=== PATIENT | female | born 1990 | race Caucasian/White ===

== ENCOUNTER → 2017-05-04 09:54 | Outpatient (CLI) | payer OTHER, SELFPAY ==
[2017-04-06 10:47] VITALS: BP 112/75; BMI 35.8
[2017-05-04 10:18] LABS: Absolute Lymphocyte Count 2.33 X10^3/ul (0.83-4.51); Absolute Neutrophil Count 10.7 X10^3/uL (2.0-7.7); Basophil# 0.02 X10^3/uL; Basophil% 0.1 % (0-1); Eosinophils% 0.7 % (0-5); Hematocrit 35.4 % (37-47); Hemoglobin 12.2 g/dl (12.0-15.0); Lymphocyte # 2.33 X10^3/ul (4.0); Lymphocyte % 16.6 % (19-41); Mean Corp Hgb Conc 34.5 g/gl (32-36); Mean Corpuscular Hgb 32.2 pg (27.0-32.0); Mean Corpuscular Volume 93.4 fL (81-99); Mean Platelet Vol. 11.9 fl (6.2-12.0); Monocyte# 0.78 X10^3/uL; Monocyte% 5.6 % (0-10); Neutrophil # 10.66 X10^3/uL (2.7-7.7); Neutrophil % 76.1 % (47-70); POSITIVE COUNT NO; POSITIVE DIFFERENTIAL NO; POSITIVE MORPHOLOGY NO; Platelet Count 269 K/mm3 (150-450); RBC Distribution Width CV 12.4 % (11.6-14.6); Red Blood Count 3.79 M/mm3 (4.2-5.4)
[2017-05-04 10:54] LABS: AST(SGOT) 14 U/L (15-37); Alanine Aminotransfer ALT/SGPT 24 U/L (13-56); Bilirubin, Direct 0.07 mg/dL (0.00-0.30); Glucose Challenge Gest 1H 50g 126 mg/dL (70-140); LDH 144 U/L (84-246)
== END ==
PROVIDERS: Family Provider Internal Medicine; PCP Internal Medicine; Visit Provider Obstetrics & Gynecology
DX: O99.719 Diseases of the skin and subcutaneous tissue complicating pregnancy, unspecified trimester (principal); L29.9 Pruritus, unspecified; Z3A.00 Weeks of gestation of pregnancy not specified
CPT/HCPCS: 36415; 82247; 82248; 82950; 83615; 84450; 84460; 85025

== ENCOUNTER → 2017-07-04 14:32 | Outpatient (CLI) | payer OTHER, SELFPAY ==
[2017-07-04 15:59] LABS: Group B Strep DNA By PCR Negative (Negative); Internal Control PASS; Probe Check PASS; Specimen Processing Control PASS
== END ==
PROVIDERS: Visit Provider Nurse Practitioner Women's Health
DX: Z34.93 Encounter for supervision of normal pregnancy, unspecified, third trimester (principal); Z3A.36 36 weeks gestation of pregnancy
CPT/HCPCS: 87081; 87653

== ENCOUNTER 2017-07-26 10:05 | Inpatient (IN) | payer OTHER, SELFPAY ==
[2017-07-26 05:33] VITALS: BMI 88.8
[2017-07-26 10:43] LABS: Hematocrit 32.6 % (37-47); Hemoglobin 10.7 g/dl (12.0-15.0); Mean Corp Hgb Conc 32.8 g/gl (32-36); Mean Corpuscular Hgb 28.8 pg (27.0-32.0); Mean Corpuscular Volume 87.9 fL (81-99); Mean Platelet Vol. 12.4 fl (6.2-12.0); Platelet Count 229 K/mm3 (150-450); RBC Distribution Width CV 13.6 % (11.6-14.6); RBC Distribution Width SD 43.8 fl (35.1-43.9); Red Blood Count 3.71 M/mm3 (4.2-5.4); White Blood Count 18.2 K/mm3 (4.4-11.0)
[2017-07-26 10:44] LABS: Scan Indicated on CBC? Y/N NO
[2017-07-26] MEDS: fentaNYL-bupivacaine (epidural) 100 ML BAG EPIDURAL ×2 (11:55→16:08)
[2017-07-26] MEDS: Lactated Ringers 1,000 ML 50 ML IV ×2 (12:00→16:00)
--- NOTE | 2017-07-26 12:41 | PCM.HP.STD ---
Problem List (1) 39 weeks gestation of Status: Acute History of Present Illness Date of Admission: 07/26/17 Chief Complaint: Painful contractions The patient is a 27 year old F 2 para 0010 at 39 weeks gestational age with painful contractions. She was observed this morning in triage and progressed from 2 to 4 cm over several hours. She reported good movement, no leaking of fluid or vaginal bleeding. 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 History: - - Abnormal PAP smear of cervix Smoking Status: Former smoker Tobacco Use: Non-smoker Alcohol: None Drugs: None - *Family History grandfather History Items: Heart Disease Review of Systems Constitutional: Reports: - - Heartburn and nausea Cardiovascular: Denies: Chest Pain Respiratory: Denies: Shortness of Breath Gastrointestinal: Denies: Abdominal Pain Gynecological: Denies: Vaginal bleeding Neurological: Reports: - - No vision changes Psychiatric: Denies: Depression VTE Information - Inpt Only VTE Present on Admission: No VTE Mechan Device Prophylaxis: None Subjective: See HPI Objective: AVSS - Physical Exam General: Alert, Oriented x3, Cooperative, No apparent distress HEENT: Atraumatic, Normocephalic Lungs: Normal air movement Cardiovascular: Regular rate, Regular Rhythm Abdomen: Soft, Non Tender, Non-Distended, Gravid, Obese, - Extremities: No Calf Tenderness Neurological: Neuro grossly intact Psych/Mental Status: Normal Affect, Appropriate, Alert and oriented to time, place, person, mood and affect Comment: Bedside US - fetus cephalic, OP, with anterior placenta Weight: 265 kg Body Mass Index (BMI) 88.8 Laboratory Tests Past 24 Hrs 07/26/17 07/26/17 10:30 10:30 WBC 18.2 H RBC 3.71 L Hgb 10.7 L Hct 32.6 L MCV 87.9 MCH 28.8 MCHC 32.8 RDW 13.6 RDW Differential 43.8 Plt Count 229 MPV 12.4 H Blood Type O POSITIVE Antibody Screen NEGATIVE labs reviewed: Rubella immune Hep Bs Ag neg RPR non-reactive HIV non-reactive Gonorrhea negative Chlamydia negative GBS negative Assessment/Plan 39 weeks gestation in latent labor, Cat I FHR Admit to Anesthesiology consult: Epidural placed per patient request GBS negative Reviewed with patient and family delivery risks not limited to pain, bleeding, infection, VTE, potential for hemorrhage, possibly requiring further surgery, as well as potential for labor augmentation, vacuum or delivery. Patient and family given opportunity to ask questions and questions answered to their satisfaction. Continue expectant management in labor
--- NOTE | 2017-07-26 12:52 | HP.PCM_ITS ---
Problem List (1) 39 weeks gestation of Status: Acute History of Present Illness Date of Admission: 07/26/17 Chief Complaint: Painful contractions The patient is a 27 year old F 2 para 0010 at 39 weeks gestational age with painful contractions. She was observed this morning in triage and progressed from 2 to 4 cm over several hours. She reported good movement , no leaking of fluid or vaginal bleeding. Past Medical History Allergies No Known Allergies Allergy (Verified 07/26/17 05:34) Home Medications: Ambulatory Orders Medication Instructions Recorded calcium carbonate 200 mg calcium 200 mg PO TID tab 03/07/17 (500 mg) chewable tablet 1 tab PO QDAY 03/07/17 vitamin,calcium,gwualmkw-rxgo-zkweg acid tablet ranitidine 150 mg tablet 150 mg PO QHS 04/06/17 Ibuprofen 600 mg PO TID PRN #30 tab 07/28/17 Senna/Docusate Sodium [Senokot-S] 1 - 2 tab PO DAILY PRN PRN #60 tab 07/28/17 Surgical History: - - Dilation and curettage Psychiatric History: Depression [employer] History: - - Abnormal PAP smear of cervix Smoking Status: Former smoker Tobacco Use: Non-smoker Alcohol: None Drugs: None - *Family History grandfather History Items: Heart Disease Review of Systems Constitutional: Reports: - - Heartburn and nausea Cardiovascular: Denies: Chest Pain Respiratory: Denies: Shortness of Breath Gastrointestinal: Denies: Abdominal Pain Gynecological: Denies: Vaginal bleeding Neurological: Reports: - - No vision changes Psychiatric: Denies: Depression VTE Information - Inpt Only VTE Present on Admission: No VTE Mechan Device Prophylaxis: None Subjective: See HPI Objective: AVSS - Physical Exam General: Alert, Oriented x3, Cooperative, No apparent distress HEENT: Atraumatic, Normocephalic Lungs: Normal air movement Cardiovascular: Regular rate, Regular Rhythm Abdomen: Soft, Non Tender, Non-Distended, Gravid, Obese, - Extremities: No Calf Tenderness Neurological: Neuro grossly intact Psych/Mental Status: Normal Affect, Appropriate, Alert and oriented to time, place, person, mood and affect Comment: Bedside US - fetus cephalic, OP, with anterior placenta Weight: 265 kg Body Mass Index (BMI) 88.8 Laboratory Tests Past 24 Hrs 07/26/17 07/26/17 10:30 10:30 WBC 18.2 H RBC 3.71 L Hgb 10.7 L Hct 32.6 L MCV 87.9 MCH 28.8 MCHC 32.8 RDW 13.6 RDW Differential 43.8 Plt Count 229 MPV 12.4 H Blood Type O POSITIVE Antibody Screen NEGATIVE labs reviewed: Rubella immune Hep Bs Ag neg RPR non-reactive HIV non-reactive Gonorrhea negative Chlamydia negative GBS negative Assessment/Plan 39 weeks gestation in latent labor, Cat I FHR Admit to Anesthesiology consult: Epidural placed per patient request GBS negative Reviewed with patient and family delivery risks not limited to pain, bleeding, infection, VTE, potential for hemorrhage, possibly requiring further surgery, as well as potential for labor augmentation, vacuum or delivery. Patient and family given opportunity to ask questions and questions answered to their satisfaction. Continue expectant management in labor
[2017-07-26] MEDS: proMETHazine 25 MG/ML Syringe IV (13:06)
[2017-07-26 13:11] VITALS: BMI 40.1
[2017-07-26] MEDS: Mag Hydrox/Al Hydrox/Simeth 30 ML UDC PO ×2 (14:36→19:31)
[2017-07-26] MEDS: Oxytocin 30 units/NS 500 ml 30 UNITS/500 ML IV.SOLN IV (18:15)
--- NOTE | 2017-07-26 18:25 | PCM.PN.BLA ---
Progress Note LABOR PROGRESS NOTE Stephanie remains comfortable with her epidural. No complaints. AVSS GEN - NAD, AAO x 3 SVE- 8.5/90/-1 per my exam FHR 140, moderate variability, + accelerations, no decelerations TOCO 3/10 min A/P: 27yo @ 39wga in active labor, Cat I FHR -Recommended amniotomy, r/b/i reviewed. Pt agreed to proceed. Amniotomy performed with clear fluid. -Will give pitocin for augmentation - risks reviewed including tachysystole with FHR changes, rarely requiring C/S. - Maternal and statuses reassuring.
[2017-07-26] MEDS: Oxytocin 30 units/NS 500 ml 30 UNITS/500 ML IV.SOLN 334 UNITS IV (23:03)
[2017-07-26] MEDS: Oxytocin 30 units/NS 500 ml 30 UNITS/500 ML IV.SOLN 167 UNITS IV (23:33)
--- NOTE | 2017-07-26 23:54 | PCM.OB.VAG ---
- Problem List (1) 39 weeks gestation of Status: Acute Vaginal Delivery Maternal Presentation: - - Latent labor Second stage pitocin augmentation Amniotic Membrane Rupture Type: Artificial Rupture of Membrane time: 1805h 07/26/17 Amniotic Fluid Description: Clear Final YANETH: 08/09/17 Final YANETH Source: US <20 weeks Gestational age: 38 Weeks and 0 Days Date of Procedure: 07/26/17 Pre-Operative Diagnosis: 38 wga, labor Post-Operative Diagnosis: 38 wga, labor Surgery/ Procedure Performed: Spontaneous Vaginal Delivery Anesthesiologist: Edda Moore Type of Anesthesia: Epidural Description of Procedure: SVE FD/+3 on my arrival. Patient pushed over single contractions to deliver a vigorous male infant in OA. The infant was placed on the maternal abdomen and further attended by nursery personnel. The cord was doubly clamped and cut after approximately 3 minutes of life. Cord blood and cord gases were obtained. The placenta delivered spontaneously and appeared intact on inspection. A second degree perineal laceration with vaginal and left labial extension was repaired with 3-0 Vicryl Rapide with excellent hemostasis. Presentation: Vertex Placental Delivery Description: Spontaneous Placenta Disposition: [facility] Cord Vessel Description: 3 Vessels Nuchal Cord Compression: Without compression Cord Gases drawn per routine: ABG, VBG Cord Entanglement: None Drain: Gilbert to straight drain Estimated Blood Loss: 400 ml Infant A gender: Male (1 minute): 8 (5 minute): 9 Episiotomy Description: None Laceration: Midline, Vaginal Extension/lac, 2nd degree Medications given after delivery: IV Pitocin Complications: None
--- NOTE | 2017-07-27 00:08 | DCINST_ITS ---
Discharge Diet: No Restrictions Discharge Activity: Return to Normal Activity, May Shower May resume sexual activity in: 6 weeks Lifting Restrictions: 10-20 lb Call your doctor if you observe: Fever of 101 or Higher, Inability to urinate, Inability to have a bowel movement, Using more than one pad per hour, Shortness of breath, Chest pain, Calf discomfort, Uncontrolled pain Suture Line Care: Avoid Pulling/Pushing Cleanse incision/area with: Soap & Water Additional Instructions: If you experience any of the following, contact your healthcare provider. * Bleeding that soaks a pad every hour for 2 hours * Fever 100.4 or higher * Unrelieved incision or abdominal pain * Swelling, redness, discharge or bleeding from your incision or episiotomy site * Your incision begins to separate * Problems urinating (including inability to urinate or burning while urinating) . * Visual changes * Severe headache * Flu-like symptoms * Pain or redness in one of both of your breasts * Pain, warmth, tenderness or swelling in your legs, especially the calf area * Frequent nausea and vomiting * Symptoms of depression or anxiety If you experience any of the following, call 911 or go to the nearest Emergency Room. * Chest pain * Problems breathing * Seizure activity * Partial or complete paralysis of a body part, slurred speech, weakness or drooping of the face, or a sudden inability to walk or hold your balance Allergies/Adverse Reactions: Allergies No Known Allergies Allergy (Verified 07/26/17 05:34) Medications to take at Discharge calcium carbonate 200 mg calcium (500 mg) chewable tablet 200 mg PO TID tab vitamin,calcium,rpxdzbsl-frop-tpkqy acid tablet 1 tab PO QDAY 03/07/17 ranitidine 150 mg tablet 150 mg PO QHS 04/06/17 Ibuprofen 600 mg PO TID PRN #30 tab 07/28/17 Senna/Docusate Sodium [Senokot-S] 1 - 2 tab PO DAILY PRN PRN #60 tab 07/28/17 The following prescriptions were given: Senna/Docusate Sodium [Senokot-S] 1 - 2 tab PO DAILY PRN PRN #60 tab PRN Reason: Constipation Ibuprofen 600 mg PO TID PRN #30 tab PRN Reason: Pain Please Follow Up With: Yaneli Aguilar MD When: 2 weeks AND 6 weeks Primary Care Physician: Rosy Rich MD [Primary Care Provider] -
[2017-07-27 04:31] VITALS: BP 143/84; PULSE 83; RESP 18; TEMP 36.8; O2SAT 98
[2017-07-27 08:00] VITALS: BP 129/62; PULSE 91; RESP 16; TEMP 37.1; O2SAT 98
--- NOTE | 2017-07-27 08:40 | PCM.PN.OB ---
Patient Problems: Active and Suspected Problems (Last Reviewed 07/25/17 @ 11:40 by Chayito Strauss) 39 weeks gestation of (Acute) Subjective: Stephanie is sore, but overall doing well. She passed a few clots, but denies heavy lochia. She is , infant is latching well. No complaints. Objective: AVSS - Physical Exam General: Alert, Oriented x3, Cooperative, No apparent distress HEENT: Atraumatic, Normocephalic Lungs: Clear to auscultation, Normal air movement Cardiovascular: Regular rate, Regular Rhythm Abdomen: Soft, Non Tender, Non-Distended, - - Fundus firm and nontender, lochia scant Extremities: No edema, No Calf Tenderness Neurological: Neuro grossly intact Psych/Mental Status: Normal Affect, Appropriate, Alert and oriented to time, place, person, mood and affect Vital Signs Temp Pulse Resp BP Pulse Ox 98.2 F 89 16 127/51 H 99 07/28/17 08:57 07/28/17 08:57 07/28/17 08:57 07/28/17 08:57 07/28/17 08:57 Oxygen Delivery Method Room Air Weight: 120.202 kg Body Mass Index (BMI) 40.1 Intake and Output for Last 24 Hours 07/26/17 07/27/17 07/28/17 23:59 23:59 23:59 Intake Total 2308 / 2308 Output Total 200 / 200 Balance 2108 / 2108 Medical Necessity - Tobacco Use Smoking Status: Former smoker Tobacco Use: Non-smoker Assessment/Plan Active and Suspected Problems (Last Reviewed 07/25/17 @ 11:40 by Chayito Strauss) 39 weeks gestation of (Acute) 27yo PPD#1 s/p doing well. - -O positive, Rubella immune -Routine care
[2017-07-27] MEDS: Famotidine 20 MG Tablet PO (11:28)
[2017-07-27] MEDS: Ibuprofen 600 MG Tablet PO (12:16)
[2017-07-27] MEDS: Prenatal Vits Tablet 1 TABLET PO (12:16)
[2017-07-27 12:50] VITALS: BP 121/66; PULSE 106; RESP 20; TEMP 36.7; O2SAT 98
[2017-07-27 15:15] VITALS: BP 120/72; PULSE 94; RESP 18; TEMP 36.8; O2SAT 97
[2017-07-27 20:51] VITALS: BP 114/69; PULSE 103; RESP 18; TEMP 36.7; O2SAT 98
[2017-07-27] MEDS: Senna/Docusate Sodium 1 Tablet PO (22:10)
[2017-07-28 01:46] VITALS: BP 121/61; PULSE 88; RESP 18; TEMP 36.6; O2SAT 97
[2017-07-28] MEDS: Prenatal Vits Tablet 1 TABLET PO (08:55)
[2017-07-28 08:57] VITALS: BP 127/51; PULSE 89; RESP 16; TEMP 36.8; O2SAT 99
--- NOTE | 2017-07-28 09:13 | PCM.PN.OB ---
Patient Problems: Active and Suspected Problems (Last Reviewed 07/25/17 @ 11:40 by Chayito Strauss) 39 weeks gestation of (Acute) Subjective: No issues overnight. Stephanie is doing well. Infant continues to nurse well, but he was fussy after his circumcision. Objective: AVSS - Physical Exam General: Alert, Oriented x3, Cooperative, No apparent distress HEENT: Atraumatic, Normocephalic Lungs: Clear to auscultation, Normal air movement Cardiovascular: Regular rate, Regular Rhythm Abdomen: Soft, Non Tender, Non-Distended, - - Fundus firm and nontender Extremities: No edema, No Calf Tenderness Neurological: Neuro grossly intact Psych/Mental Status: Normal Affect, Appropriate, Alert and oriented to time, place, person, mood and affect Vital Signs Temp Pulse Resp BP Pulse Ox 98.2 F 89 16 127/51 H 99 07/28/17 08:57 07/28/17 08:57 07/28/17 08:57 07/28/17 08:57 07/28/17 08:57 Oxygen Delivery Method Room Air Weight: 120.202 kg Body Mass Index (BMI) 40.1 Intake and Output for Last 24 Hours 07/26/17 07/27/17 07/28/17 23:59 23:59 23:59 Intake Total 2308 / 2308 Output Total 200 / 200 Balance 2108 / 2108 Medical Necessity - Tobacco Use Smoking Status: Former smoker Tobacco Use: Non-smoker Assessment/Plan Active and Suspected Problems (Last Reviewed 07/25/17 @ 11:40 by Chayito Strauss) 39 weeks gestation of (Acute) 27yo PPD#2 s/p doing well. -d/c home today
--- NOTE | 2017-07-28 09:18 | PCM.DC.SUM ---
Discharge Date and Diagnosis - Problem List Patient Problems: Active and Suspected Problems (Last Reviewed 07/25/17 @ 11:40 by Chayito Strauss) 39 weeks gestation of (Acute) Date of Admission: 07/26/17 Date of Discharge: 07/28/17 - Primary Discharge Diagnosis Active and Suspected Problems (Last Reviewed 07/25/17 @ 11:40 by Chayito Strauss) 39 weeks gestation of (Acute) Hospital Course and Treatment Operations: None Procedures: None Summary of Care Provided: The patient is a 27 year old F 2 para 0010 admitted at 39 weeks gestational age in labor. She received pitocin augmentation and subsequently had an uncomplicated . Her course was unremarkable and she was discharged to home on day #2. Discharge Diet: No Restrictions Discharge Activity: Return to Normal Activity, May Shower May resume sexual activity in: 6 weeks Call your doctor if you observe: Fever of 101 or Higher, Inability to urinate, Inability to have a bowel movement, Using more than one pad per hour, Shortness of breath, Chest pain, Calf discomfort, Uncontrolled pain Suture Line Care: Avoid Pulling/Pushing Cleanse incision/area with: Soap & Water Home Medications: Medications to take at Discharge calcium carbonate 200 mg calcium (500 mg) chewable tablet 200 mg PO TID tab 03/07/17 vitamin,calcium,ikplqizm-dwam-svped acid tablet 1 tab PO QDAY 03/07/17 ranitidine 150 mg tablet 150 mg PO QHS 04/06/17 Primary Care Physician: Rosy Rich MD [Primary Care Provider] - Please Follow Up With: Yaneli Aguilar MD Medical Necessity - Tobacco Use Smoking Status: Former smoker Tobacco Use: Non-smoker Meaningful Use Info Meaningful Use Diagnoses (Choose all that apply): None applicable
[2017-07-28 12:54] VITALS: BP 129/64; PULSE 88; RESP 16; TEMP 36.8
== END 2017-07-28 13:20 | disposition home or self-care (01) | DRG 775 ==
LOC: WPOUT 10:29
PROVIDERS: Admitting Provider Obstetrics & Gynecology; Family Provider Internal Medicine; PCP Internal Medicine; Visit Provider Obstetrics & Gynecology
DX: O70.1 Second degree perineal laceration during delivery (principal); Z37.0 Single live birth; O69.81X0 Labor and delivery complicated by cord around neck, without compression, not applicable or unspecified; O99.02 Anemia complicating childbirth; Z3A.39 39 weeks gestation of pregnancy; Z87.891 Personal history of nicotine dependence
CPT/HCPCS: 59025; 59050; 85027; 86850; 86900; 99218; J7120; G0378

== ENCOUNTER 2017-07-31 19:10 | Outpatient (CLI) | payer OTHER, SELFPAY | END 2017-07-31 20:00 | disposition home or self-care (01) | LOC: WPOUT 19:38 → WP 19:39 | PROVIDERS: Family Provider Internal Medicine; PCP Internal Medicine; Visit Provider Obstetrics & Gynecology | DX: O92.79 Other disorders of lactation (principal) | CPT/HCPCS: 96152 ==

== ENCOUNTER → 2017-09-05 09:55 | Outpatient (CLI) | payer OTHER, SELFPAY ==
[2017-09-05 11:20] LABS: T4 Free Direct 0.98 ng/dL (0.76-1.46); Thyroid Stim Hormone (TSH) 2.19 uIU/mL (0.358-3.74)
== END ==
PROVIDERS: Family Provider Internal Medicine; PCP Internal Medicine; Visit Provider Obstetrics & Gynecology
DX: E01.0 Iodine-deficiency related diffuse (endemic) goiter (principal)
CPT/HCPCS: 36415; 84439; 84443

== ENCOUNTER → 2017-09-12 14:12 | Outpatient (CLI) | payer OTHER, SELFPAY ==
--- NOTE | 2017-09-12 14:14 | US_ITS ---
STUDY: THYROID ULTRASOUND REASON FOR EXAM: Female, 27 years old. Thyromegaly. TECHNIQUE: Ultrasound evaluation of the thyroid was performed with real-time and static barreto-scale imaging. COMPARISON: None. FINDINGS: RIGHT LOBE: The right lobe of the thyroid gland measures 5.4 x 1.6 x 1.3 cm. There is a homogeneous echotexture. There are no demonstrated solid, cystic or complex lesions. LEFT LOBE: The left lobe of the thyroid gland measures 5.3 x 3.2 x 3.1 cm. Normal background echotexture of the gland, appropriate vascular flow. Large complex cystic and solid nodule mid polar measures 3.4 x 3.0 x 3.0 cm. It contains several tiny echo reflectors, probably colloid. This is likely a chocolate cyst. There is no apparent intranodular vascular flow. ISTHMUS: The isthmus measures 3 mm, normal echotexture. . US/Thyroid IMPRESSION: Cystic and solid nodule of the left thyroid gland. Hemorrhagic or chocolate cyst is favored. No intraluminal flow. Cystic and solid features. The internal solid features are probably debris and thrombus. Based on criteria of the [place] [employer], the cystic and solid nodule falls into the Very Low or Low Suspicion Pattern, and based on the [place] [employer] size criteria for very low suspicion pattern, size greater than 2 cm, ultrasound-guided FNA aspiration/biopsy is recommended. Electronically Signed: Austin Benton, at 15:33 EDT Tel , Service support ,
== END ==
PROVIDERS: Family Provider Internal Medicine; PCP Internal Medicine; Visit Provider Obstetrics & Gynecology
DX: E01.0 Iodine-deficiency related diffuse (endemic) goiter (principal)
CPT/HCPCS: 76536

== ENCOUNTER → 2017-10-31 17:37 | Outpatient (CLI) | payer OTHER, SELFPAY ==
--- NOTE | 2017-10-31 14:00 | ASPS_PTH ---
PATIENT: KAI MOREIRA LOC: [facility] #:[id number] AGE/SX: 35/F ROOM: RE10/31/[address]: Dr. Av Lynch MD : 1990 BED: DIS: SPEC #: [id number] RECD: 10/31/17 17:04 STATUS: HASEEB ANJELICA #: [id number] SAIRA: 10/31/17 14:[address]: Av Lynch DEPT: CYTOLOGY RECD BY: Austin Pina ENTERED: 11/01/17 10:12 SP TYPE: ASPIRATION OTHR DR: Dr. Rosy Rich MD Tissues: Thyroid gland, NOS Procedures: Pap Stain (control) Special Stain Group II Cytology Other HEADER OPERATION: Left thyroid FNA PRE-OP DIAGNOSIS: Left thyroid nodule TISSUE SUBMITTED: Left thyroid slides 6 DIAGNOSIS CYTOLOGY Left thyroid nodule, FNA (smears): Consistent with cystic follicular lesion with H?rthle features and a few atypical cells of undetermined significance. See cytology study and comment. SJ:rg 11/02/17 COMMENT Correlation with clinical, radiologic findings and appropriate follow up are necessary. Case has been reviewed in consultation with Dr. Sweet who concurs with the above diagnosis. IDC:AM CYTOLOGY STUDY Slides are reviewed. The specimen is adequate for evaluation. The specimen consists of numerous macrophages, benign follicular cells, H?rthle cells and giant cells. A few of the H?rthle cells of undetermined significance are also noted. CYTOLOGY GROSS Received are six smears labeled with the patient's name and designated per the requisition as left thyroid. Submitted for staining. 11/01/17 TC:5 CPT: 88311
== END ==
PROVIDERS: Family Provider Internal Medicine; PCP Internal Medicine; Visit Provider Surgery
DX: E04.1 Nontoxic single thyroid nodule (principal)
CPT/HCPCS: 88161; 88313

== ENCOUNTER → 2020-11-10 16:04 | Outpatient (CLI) | payer OTHER, SELFPAY ==
[2020-11-10 17:21] LABS: Amphetamine Urine VISTA NEGATIVE (<1000 ng/mL); Barbiturate Urine VISTA NEGATIVE (< 200 ng/mL); Benzodiazepine Urine VISTA NEGATIVE (< 200 ng/mL); Cocaine Urine VISTA NEGATIVE (< 300 ng/mL); Ecstacy Urine VISTA NEGATIVE (< 500 ng/mL); Methadone Urine VISTA NEGATIVE (< 300 ng/mL); PCP Urine VISTA NEGATIVE (< 25 ng/mL); THC Urine VISTA NEGATIVE (< 50 ng/mL); Vista UDS pH Range 7
[2020-11-12 20:08] LABS: Chlamydia By Nucleic Acid AMP Negative (Negative)
[2020-11-12 21:09] LABS: Gonococcus By Nucleic Acid AMP Negative (Negative)
[2020-11-15 14:51] LABS: HPV APTIMA, High Risk Negative (Negative)
== END ==
PROVIDERS: PCP Internal Medicine; Referring Provider Obstetrics & Gynecology; Visit Provider Obstetrics & Gynecology
DX: Z34.80 Encounter for supervision of other normal pregnancy, unspecified trimester (principal)
CPT/HCPCS: 80307; 87086; 87088; 87491; 87591; 87624; 88175; G0145

== ENCOUNTER → 2020-11-26 15:21 | Outpatient (CLI) | payer OTHER, SELFPAY ==
[2020-11-26 16:10] LABS: Absolute Lymphocyte Count 3.08 X10^3/uL (0.83-4.51); Absolute Neutrophil Count 7.5 X10^3/uL (2.0-7.7); Basophil# 0.02 X10^3/uL; Basophil% 0.2 % (0-1); Eosinophils% 0.9 % (0-5); Hematocrit 38.7 % (37-47); Hemoglobin 12.9 g/dL (12.0-15.0); Lymphocyte # 3.08 X10^3/ul (0.83-4.51); Lymphocyte % 27.1 % (19-41); Mean Corp Hgb Conc 33.3 g/dL (32-36); Mean Platelet Vol. 11.1 fl (6.2-12.0); Monocyte# 0.61 X10^3/uL; Monocyte% 5.4 % (0-10); NRBC Flagged by Analyzer 0 % (0-5); Neutrophil # 7.49 X10^3/uL (2.7-7.7); Neutrophil % 65.9 % (47-70); Platelet Count 216 K/mm3 (150-450); RBC Distribution Width CV 12.8 % (11.6-14.6); RBC Distribution Width SD 45.2 fl (35.1-43.9); Red Blood Count 4.03 M/mm3 (4.2-5.4); White Blood Count 11.4 K/mm3 (4.4-11.0)
[2020-11-26 16:33] LABS: NATERA MAILED SPECIMEN
[2020-11-26 16:54] LABS: Glucose Challenge Gest 1H 50g 92 mg/dL (70-140)
[2020-11-30 09:22] LABS: HIV - WCH Non-Reactive (Nonreactive); Hepatitis B Surface Antigen Non-Reactive (Nonreactive); Hepatitis C Antibody Non-Reactive (Nonreactive); Rubella IgG Reactive (Nonreactive); Syphilis Antibodies Non-reactive
== END ==
LOC: LABSPEC 15:22
PROVIDERS: PCP Internal Medicine; Referring Provider Obstetrics & Gynecology; Visit Provider Obstetrics & Gynecology
DX: Z34.80 Encounter for supervision of other normal pregnancy, unspecified trimester (principal); E89.0 Postprocedural hypothyroidism
CPT/HCPCS: 36415; 82950; 84443; 85025; 86703; 86762; 86780; 86803; 86850; 86900; 86901; 87340

== ENCOUNTER → 2021-03-02 16:30 | Outpatient (CLI) | payer OTHER, SELFPAY | PROVIDERS: PCP Internal Medicine; Visit Provider Obstetrics & Gynecology | DX: N89.8 Other specified noninflammatory disorders of vagina (principal) | CPT/HCPCS: 87070; 87205 ==

== ENCOUNTER → 2021-03-11 16:13 | Outpatient (CLI) | payer OTHER, SELFPAY ==
[2021-03-11 16:56] LABS: Absolute Lymphocyte Count 1.58 X10^3/uL (0.83-4.51); Basophil# 0.03 X10^3/uL; Basophil% 0.3 % (0-1); Eosinophil# 0.06 X10^3/uL; Eosinophils% 0.6 % (0-5); Hematocrit 34.1 % (37-47); Hemoglobin 11.1 g/dL (12.0-15.0); Lymphocyte # 1.58 X10^3/ul (0.83-4.51); Lymphocyte % 15.2 % (19-41); Mean Corp Hgb Conc 32.6 g/dL (32-36); Mean Corpuscular Hgb 30.6 pg (27.0-32.0); Mean Corpuscular Volume 93.9 fL (81-99); Mean Platelet Vol. 11.1 fl (6.2-12.0); Monocyte% 5.8 % (0-10); NRBC Flagged by Analyzer 0 % (0-5); Neutrophil # 7.95 X10^3/uL (2.7-7.7); Neutrophil % 76.5 % (47-70); Platelet Count 266 K/mm3 (150-450); RBC Distribution Width SD 41.5 fl (35.1-43.9); Red Blood Count 3.63 M/mm3 (4.2-5.4); White Blood Count 10.4 K/mm3 (4.4-11.0)
[2021-03-11 17:46] LABS: Glucose Challenge Gest 1H 50g 122 mg/dL (70-140)
[2021-03-11 17:49] LABS: Thyroid Stim Hormone (TSH) 1.16 uIU/mL (0.358-3.74)
== END ==
PROVIDERS: Obstetrics & Gynecology; PCP Internal Medicine; Visit Provider Obstetrics & Gynecology
DX: Z34.91 Encounter for supervision of normal pregnancy, unspecified, first trimester (principal); E86.0 Dehydration
CPT/HCPCS: 36415; 82950; 84443; 85025

== ENCOUNTER 2021-05-13 16:46 | Outpatient (CLI) | payer OTHER, SELFPAY | END 2021-05-13 23:59 | disposition home or self-care (01) | LOC: LABSPEC 16:47 | PROVIDERS: PCP Internal Medicine; Visit Provider Obstetrics & Gynecology | DX: Z34.80 Encounter for supervision of other normal pregnancy, unspecified trimester (principal) | CPT/HCPCS: 87081 ==

== ENCOUNTER 2021-06-13 04:53 | Inpatient (IN) | payer OTHER, SELFPAY ==
[2021-06-13] VITALS (53 sets, daily range): BP systolic 93–233; BP diastolic 49–118; PULSE 77–171; RESP 16–18; TEMP 35.9–36.6; O2SAT 82–100; BMI 38.7
[2021-06-13] MEDS: Lactated Ringers 500 ML 999 ML IV (05:05)
[2021-06-13 05:28] LABS: Absolute Lymphocyte Count 3.99 X10^3/uL (0.83-4.51); Absolute Neutrophil Count 10.4 X10^3/uL (2.0-7.7); Basophil# 0.04 X10^3/uL; Basophil% 0.3 % (0-1); Eosinophil# 0.11 X10^3/uL; Eosinophils% 0.7 % (0-5); Hematocrit 33.5 % (37-47); Hemoglobin 10.5 g/dL (12.0-15.0); Lymphocyte # 3.99 X10^3/ul (0.83-4.51); Lymphocyte % 25.7 % (19-41); Mean Corp Hgb Conc 31.3 g/dL (32-36); Mean Corpuscular Hgb 25.6 pg (27.0-32.0); Mean Corpuscular Volume 81.7 fL (81-99); Mean Platelet Vol. 12.1 fl (6.2-12.0); Monocyte# 0.86 X10^3/uL; Monocyte% 5.5 % (0-10); NRBC Flagged by Analyzer 0 % (0-5); Neutrophil # 10.42 X10^3/uL (2.7-7.7); Neutrophil % 67.3 % (47-70); Platelet Count 319 K/mm3 (150-450); RBC Distribution Width SD 44.8 fl (35.1-43.9); White Blood Count 15.5 K/mm3 (4.4-11.0)
--- NOTE | 2021-06-13 05:59 | HP.PCM.OB_ITS ---
HPI - General General Date of Admission: 06/13/21 HPI Narrative KAI MOREIRA, is a 31 y/o @ 40 weeks 3 days who presents to L&D with the complaint of painful contractions. When the nurse called to alert that the patient had arrived, she reported that she is 6 cm dilated and asking for an epidural. Maternal Data Information YANETH Calculator Estimated Delivery Date Method Current WG Current Estimate 06/10/21 Ultrasound #1 40w 3d Other Estimates 06/18/21 LMP (Certain) 39w 2d PFSH [facility] Medical History (Updated 06/13/21 @ 05:22 by Maryjane Bueno) Abnormal Pap smear of cervix Depression Superficial varicosities Thyroid nodule Home Medications multivitamin no.47-iron fum 27 mg-folate no.1 1 mg-dha 300 mg capsule cap PO DAILY 11/02/20 [History Last Taken 06/12/21] aspirin 81 mg tablet,delayed release 81 mg PO DAILY 01/11/21 [History Last Taken 06/12/21] omeprazole 10 mg capsule,delayed release 10 mg PO DAILY 03/11/21 [History Last Taken 06/12/21] sertraline [Zoloft] 100 mg PO DAILY 06/13/21 [History Last Taken 06/12/21] Allergy/AdvReac Type Severity Reaction Status Date / Time No Known Allergies Allergy Verified 06/13/21 04:41 Family History Grandfather Heart disease CVA (cerebral vascular accident) Mother Thyroid disorder Grandmother Colon cancer Surgical History H/O dilation and curettage H/O thyroidectomy Social History Smoking Status: Former smoker second hand exposure: Yes alcohol intake: never substance use type: does not use caffeine: Yes what type of physical activity do you participate in: none seatbelt use: always do you feel safe at home: Yes additional social history: james History 3 Elective abortions Hx Para 1 Spontaneous abortions Hx # Term Pregnancies 1 Ectopic pregnancies Hx # Pregnancies Multiple births # of living children 1 Past Pregnancies Del. Date Name GA/Weeks Outcome Route Bth Weight Infant Gen Labor Lgth Anesthesia Del Locatn Provider FOB 07/26/17 Horace 38 live - full term 7 lbs 9oz Male 24 e pidural [facility] Jeff Radford Visit Details Expected Delivery Route/Plan Labor Preferences- CB/BF classes: declines labor support person: MYLENE labor intervention preferences: no preference pain management options preferred:plans for epidural cut cord/dad catch: [] : [] PP control planned:undecided discussed possible routes of delivery and associated risks: [] special requests: [] Plans Covid status: counseled regarding risk of covid in vs vaccination and declined vaccination Flu vaccine: declined Tdap vaccine: given Rhogam: na LARC form signed: declined movement and labor precautions reviewed. Problem list reviewed and updated with the most current plan of care details and appropriate orders placed. Relevant counseling for the gestational age provided. Continue routine care and follow up unless otherwise noted in visit notes/problem list details OB Flowsheet Initial Weight: Not Recorded Date -?-?--?-?-?-?-?-?-?-?-?-?- EGA Weight BP Urine Prot -?-?-?-?-?-?-?-?-?-?-?-?- Glucose FHR FuHt Pres Dilation -?-?-?-?-?-?-?-?-?-?-?-?- Effaced St Visit Note 11/10/20 -?-?-?-?-?-?-?-?-?-?-?-?- 9w 5d 212 lb 4 oz 120/72 -?-?-?-?-?-?-?-?-?-?-?-?- 185 -?-?-?-?-?-?-?-?-?-?-?-?- GP - CRL 25mm co nsistent with LMP 12/10/20 -?-?-?-?-?-?-?-?-?-?-?-?- 14w 0d 212 lb 8 oz 144/88 Nega tive -?-?-?-?-?-?-?-?-?-?-?-?- Negative 150 -?-?-?-?-?-?-?-?-?-?-?-?- GP - no cramping or bleeding. Anatomy ordered. PRR. NIPT nl. It's a boy! 01/11/21 -?-?-?-?-?-?-?-?-?-?-?-?- 18w 4d 226 lb 6 oz 110/68 Nega tive -?-?-?-?-?-?-?-?-?-?-?-?- Negative 151 -?-?-?-?-?-?-?-?-?-?-?-?- MH-No VB, LOF. Recent covid:instruct on ASA use and will need growth US at 32 and 36wk. Has not heard from MFM for anatomy US-will follow up on that. 02/11/21 -?-?-?-?-?-?-?-?-?-?-?-?- 23w 0d 232 lb 130/70 Negative -?-?-?-?-?-?-?-?-?-?-?-?- 150 -?-?-?-?-?-?-?-?-?-?-?-?- SM- no vb lof go od fm no regualr ctx 03/02/21 -?-?-?-?-?-?-?-?-?-?-?-?- 25w 5d 239 lb 4 oz 122/84 Nega tive -?-?-?-?-?-?-?-?-?-?-?-?- Negative 123 -?-?-?-?-?-?-?-?-?-?-?-?- JV- pt here for vaginal discharge. She used monistat without relief. on exam there is slightly frothy dc with a light hodges color. She prefers flagyl po. culture sent. 03/11/21 -?-?-?-?-?-?-?-?-?--?-?-?- 27w 0d 243 lb 2 oz 128/76 Trac e -?-?-?-?-?-?-?-?-?-?-?-?- Negative 144 -?-?-?-?-?-?-?-?-?-?-?-?- JV- no lof, va g inal bleeding, or dec fm. GCT today. rpt thyroid level today 04/01/21 -?-?-?-?-?-?-?-?-?-?-?-?- 30w 0d 247 lb 2 oz 120/70 Nega tive -?-?-?-?-?-?-?-?-?-?-?-?- Negative 144 33 -?-?-?-?-?-?-?-?-?-?-?-?- JV- no lof, vagi nal bleeding, or dec fm. normal GCT. Normal TSH 04/15/21 -?-?-?-?-?-?-?-?-?-?-?-?- 32w 0d 250 lb 92/64 Negative -?-?-?-?-?-?-?-?-?-?-?-?- Negative 140 32 -?-?-?-?-?-?-?-?-?-?-?-?- SM- no vb lof go od fm no reuglar ctx. discussed healthy weight gain 04/29/21 -?-?-?-?-?-?-?-?-?-?-?-?- 34w 0d 252 lb 126/70 -?-?-?-?-?-?-?-?-?-?-?-?- 140 34 -?-?-?-?-?-?-?-?-?-?-?-?- SM- no vb lof go od fm nor egular ctx 05/13/21 -?-?-?-?-?-?-?-?-?-?-?-?- 36w 0d 252 lb 8 oz 120/68 Nega tive -?-?-?-?-?-?-?-?-?-?-?-?- Negative 145 37 Cephalic 1 -?-?-?-?-?-?-?-?-?-?-?-?- SM- no vb lof go od fm no regular ctx gbs done 05/20/21 -?-?-?-?-?-?-?-?-?-?-?-?- 37w 0d 252 lb 8 oz 120/62 Nega tive -?-?-?-?-?-?-?-?-?-?-?-?- Negative 160 38 Cephalic 1 -?-?-?-?-?-?-?-?-?-?-?-?- 50 -3 JV- no lof vaginal bleeding or dec fm. JV- no lof vaginal bleeding or dec fm. GBS negative 05/27/21 -?-?-?-?-?-?-?-?-?-?-?-?- 38w 0d 256 lb 8 oz 124/76 Trac e -?-?-?-?-?-?-?-?-?-?-?-?- Negative 150 39 Cephalic 2 -?-?-?-?-?-?-?-?-?-?-?-?- 60 -3 SM- no vb lof good fm no reuglar ctx 06/03/21 -?-?-?-?-?-?-?-?-?-?-?-?- 39w 0d 258 lb 4 oz 130/74 Nega tive -?-?-?-?--?-?-?-?-?-?-?-?- Negative 137 41 Cephalic 4 -?-?-?-?-?-?-?-?-?-?-?-?- 80 -3 JV- no lof , vaginal bleeding, or dec fm. no complaints. 06/10/21 -?-?-?-?-?-?-?-?-?-?-?-?- 40w 0d 256 lb 114/62 Negative -?-?-?-?-?-?-?-?-?-?-?-?- Negative 140 41 Cephalic -?-?-?-?-?-?-?-?-?-?-?-?- SM- no vb lof go od fm nor egular ctx 06/13/21 -?-?-?-?-?-?-?-?-?-?-?-?- 40w 3d 254 lb 10.142 oz 128 /65 233/118 126/62 137/64 -?-?-?-?-?-?-?-?-?-?-?-?- -?-?-?-?-?-?-?-?-?-?-?-?- ROS Constitutional Constitutional: Denies change in weight, fatigue, fever(s), headache(s), poor appetite or weakness Eyes Eyes: Denies blurry vision, change in vision, seeing flashes or spots in vision ENT HEENT: Denies dizziness, headache(s), loss taste/smell or sore throat Cardiovascular Cardiovascular: Denies chest pain, dizziness, dyspnea, irregular heart rhythm, leg edema, palpitations, rapid heart rate or vomiting Respiratory/Chest Respiratory/Chest: Denies chest tightness, cough, dyspnea or breast pain Gastrointestinal Gastrointestinal: Denies abdominal pain, anorexia, constipation, cramping, diarrhea, hemorrhoids, vomiting or weight changes Genitourinary Genitourinary: Denies dysuria, flank pain, genital lesions, genital pain, urinary frequency or urinary urgency Musculoskeletal Musculoskeletal: Denies back pain, difficulty walking, joint pain, limited range of motion, muscle cramps or numbness Integumentary Integumentary: Denies lesions or unusual bruising Neurologic Neurologic: Denies abnormal movements, abnormal speech, dizziness, numbness, seizure-like activity or syncope Psychiatric Psychiatric: Denies anxiety, behavioral changes, change in appetite, change in libido, cognitive impairment, confusion, depression, difficulty concentrating, hallucinations or suicidal thoughts Endocrine Endocrinology: Denies excessive sweating, polydipsia or polyuria Hematologic/Lymphatic Hematologic/Lymphatic: Denies easy bleeding, easy bruising or lymphadenopathy Allergic/Immunologic Allergic/Immunologic: Denies itchy eyes, lip swelling, seasonal rhinorrhea, rhinitis, throat swelling, tongue swelling, eczemia, wheezing or asthma Vital Signs Vital Signs Vital Signs: 06/13/21 04:45 06/13/21 04:53 06/13/21 05:41 Temperature 97.0 F L Temperature Source Temporal Pulse Rate 108 H 97 Blood Pressure 128/65 H BP Systolic 128 BP Diastolic 65 Pulse Ox 99 06/13/21 05:46 06/13/21 05:50 06/13/21 05:51 Temperature Temperature Source Pulse Rate 95 92 Blood Pressure 233/118 H BP Systolic 233 BP Diastolic 118 Pulse Ox 99 98 06/13/21 05:52 06/13/21 05:56 Temperature Temperature Source Pulse Rate 93 87 Blood Pressure 126/62 H BP Systolic 126 BP Diastolic 62 Pulse Ox 99 Weight Weight: 254 lb 10.142 oz Body Mass Index (BMI) 38.7 Physical Exam Const alert, oriented x3, no apparent distress and healthy appearing General Appearance: cooperative; Negative for anxious HEENT normocephalic Face and Sinus: normal facial exam Eyes EOMs intact bilaterally and no scleral icterus General Eye: normal appearance of both eyes Neck full ROM and supple Lymph Lymphatic: no lymphadenopathy noted Chest Chest: abnormal inspection of the chest Resp normal respiratory effort Effort and Inspection: able to speak in complete sentences Cardio regular rate GI soft to palpation and non-tender Inspection: gravid Palpation: soft; Negative for tender external exam normal Back/Spine no CVA tenderness Extremity normal to inspection, full ROM and no clubbing, cyanosis or edema General Extremity: Negative for calf tenderness or edema Skin Lesions: no lesions Rashes: no rashes Psych mental status grossly normal Labs Labs Labs: Blood Type O POSITIVE Antibody Screen NEGATIVE Hct 33.5 % (37-47) L Hgb 10.5 g/dL (12.0-15.0) L Obstetrics US Syphilis Total Ab Non-reactive Rubella IgG Antibody Reactive (Nonreactive) Hep Bs Antigen Non-Reactive (Nonreactive) Chlamydia DNA (SALAZAR) Negative (Negative) Neisseria gonorrhoeae DNA (SALAZAR) Negative (Negative) HIV 1&2 Antibody Non-Reactive (Nonreactive) Glucose 1 Hr 50 gm 122 mg/dL (70-140) Group B Strep DNA Negative (Negative) Rhogam given: No Miscellaneous Test Assessment & Plan (1) : QUALIFIERS: Weeks of gestation: 40 weeks Qualified Code(s): Z3A.40 - 40 weeks gestation of COMMENT: GBS neg. declined ntd screen. declines carrier, NIPT low risk. Anatomy US normal (2) Supervision of other normal : COMMENT: PRR YANETH: 06/10/21, boy, PC: Horace BF: James (3) Obesity affecting : QUALIFIERS: Trimester: first trimester Qualified Code(s): O99.211 - Obesity complicating , first trimester COMMENT: GCT wnl at NOB (4) Anxiety and depression: COMMENT: 11/15 zoloft start; 01/11 increase zoloft, encouraged counseling (5) COVID: COMMENT: +01/01/21 ASA daily, growth US 32 and 36 wk (6) Abnormal Pap smear of cervix: COMMENT: LGSIL 2016 (7) H/O thyroidectomy: COMMENT: no meds, nl labs. partial thyroidectomy. NL TSH 03/11/21 PLAN: Patient presents IAL, plan expectant management for , pitocin/AROM PRN if needed. Pain management: plans epidural. GBS negative. Management of any complications: [none] I have reviewed the [facility] and made any clinically relevant updates.
[2021-06-13] MEDS: fentaNYL-bupivacaine (epidural) 100 ML BAG EPIDURAL (06:05)
[2021-06-13] MEDS: Lactated Ringers 1,000 ML 200 ML IV ×3 (06:08→13:43)
--- NOTE | 2021-06-13 06:36 | PCM.DC ---
Discharge Instructions Diet Discharge Diet: No restrictions Activity Discharge Activity: Return to Normal Activity, May Not Drive (while taking narcotic pain medications.) and May Shower May resume sexual activity in: 4-6 weeks Dressing / Incision Call your doctor if your incision/area has: Continuous Slow Oozing, Sudden Increased Bleeding, Increased Pain/ Swelling, Increased Redness and Foul Smelling Discharge Follow Up Care Please Follow Up With: Ivory Taylor, When: Call [phone] to make an appointment with your doctor in 6 weeks. If you had elevated blood pressure or 4th degree laceration, you will need to be seen in 2 weeks. Test Results: Test results from this visit will be discussed in further detail at your follow-up appointment, if applicable. Discharge Plan Admission Admit Date/Time: 06/13/21 04:53 Primary Reason for Your Visit: vaginal delivery Attending Provider: Ivory Taylor Primary Care Provider: Rosy Rich Discharge Orders/Prescriptions Prescriptions: New ibuprofen 800 mg tablet 800 mg PO Q8H PRN (Reason: pain) 7 Days Qty: 30 RF: 0 Continued PNV-DHA 27 mg iron-1 mg -300 mg capsule PO DAILY RF: 0 omeprazole 10 mg capsule,delayed release(DR/EC) 10 mg PO DAILY RF: 0 sertraline [Zoloft] 50 mg tablet 100 mg PO DAILY RF: 0 Discontinued aspirin [Adult Low Dose Aspirin] 81 mg tablet,delayed release (DR/EC) 81 mg PO DAILY RF: 0 Referrals / Follow Up: Rosy Rich MD [Primary Care Provider] - Disposition Disposition (needs filled in before D/C Order can be placed): Home, Self Care
[2021-06-13] MEDS: Ondansetron 4 MG/2 ML Vial IV (07:23)
[2021-06-13] MEDS: Oxytocin 30 units/NS 500 ml 30 UNITS/500 ML IV.SOLN 334 UNITS IV (11:43)
--- NOTE | 2021-06-13 11:57 | OP.PCM_ITS ---
Maternal Data Information YANETH Calculator Estimated Delivery Date Method Current WG Current Estimate 06/10/21 Ultrasound #1 40w 3d Other Estimates 06/18/21 LMP (Certain) 39w 2d Vaginal Delivery Operative Information Pre-Operative Diagnosis: IAL Post-Operative Diagnosis: same Surgery / Procedure Performed: Spontaneous Vaginal Delivery Type of Anesthesia: Epidural Special Medications: none Estimated Blood Loss: 300 Fluids Replaced: crystalloid Findings Description of Procedure: Patient began pushing and after 3 hours was still at a +2 station. The head was noted to be LOP and with gentle pressure was rotated to YOLA. Patient pushed with 3 more contractions and was offered to apply a vacuum due to maternal exhaustion and patient requested. Vacuum applied and with 2 pulls and no pop offs with 2 contractions total duration of application less than 2 minutes!! the head was delivered atraumatically. The anterior and posterior shoulders delivered without complication followed by the rest of the infant and the infant was placed on the maternal abdomen. Delayed cord clamping was employed for approximately 60 seconds. Cord was clamped and cut and gentle traction was applied to the cord and the placenta delivered spontaneously immediately following it was noted to be intact with three-vessel cord. The perineum and vagina were inspected and noted to have a first degree laceration reapired in the usual fashion 3-0 rapide. EBL was 300cc. Patient and tolerated delivery well. Presentation: YOLA Amniotic Membrane Rupture Type: Artificial Amniotic Fluid Description: Clear Placental Delivery Description: Spontaneous Placenta Disposition: [facility] Cord Vessel Description: 3 Vessels Cord Entanglement: None Delayed Cord Clamping: Yes Post Vaginal Delivery Medications Given After Delivery: IV Pitocin Episiotomy Description: None Laceration: Perineal Extension/lac and 1st degree Complication Complications: None Procedures Urinary/Genital [id number]: [id number] [facility]
--- NOTE | 2021-06-13 15:01 | NURSING ---
Pt epidural cath removed, blue tip intact
[2021-06-13] MEDS: Ibuprofen 600 MG Tablet PO (20:33)
[2021-06-13] MEDS: Pantoprazole Sodium 20 MG Tablet PO (22:32)
[2021-06-13] MEDS: Sertraline 100 MG Tablet PO (22:32)
[2021-06-14] VITALS (9 sets, daily range): BP systolic 121–127; BP diastolic 55–66; PULSE 66–87; RESP 14–16; TEMP 36.1–36.2; O2SAT 97–98
--- NOTE | 2021-06-14 07:59 | PCM.PN.OB ---
Subjective Subjective Patient doing well without complaints. Tolerating PO. Ambulating and voiding without difficulty. Feeding well. Denies chest pain, shortness of breath, calf pain/swelling, fevers, chills, lightheadedness. Objective Data Objective Data Vital Signs: Vital Signs Temp Pulse Resp BP Pulse Ox 96.9 F L 77 16 127/58 H 98 06/14/21 04:20 06/14/21 04:20 06/14/21 04:20 06/14/21 04:20 06/14/21 04:20 Oxygen Delivery Method Room Air Weight: 254 lb 10.142 oz Body Mass Index (BMI) 38.7 Intake & Output: Intake and Output for Last 24 Hours 06/12/21 06/13/21 06/14/21 23:59 23:59 23:59 Intake Total 2516.66 / 2516.66 Output Total 900 / 900 Balance 1616.66 / 1616.66 Lab / Micro Data Result Diagrams: 06/13/21 05:05 Micro: Microbiology 06/13/21 05:10 Nasal Secretion SARS-CoV-2 Antigen (Rapid) - Final Physical Exam Const alert and oriented x3 HEENT normocephalic Eyes PERRL Neck full ROM Resp normal respiratory effort GI soft to palpation GI Narrative: FF below U Assessment & Plan (1) Vacuum-assisted vaginal delivery: COMMENT: Joseph LOYOLA PLAN: s/p PPD # 1 1. routine post delivery care 2. breast feeding- support given 3. rh positive 4. rubella immune 5. home today
== END 2021-06-14 16:45 | disposition home or self-care (01) | DRG 807 ==
LOC: WPOUT 04:57 → WP 04:57
PROVIDERS: Admitting Provider Obstetrics & Gynecology; PCP Internal Medicine; Visit Provider Obstetrics & Gynecology
DX: O99.344 Other mental disorders complicating childbirth (principal); Z37.0 Single live birth; E66.9 Obesity, unspecified; F41.9 Anxiety disorder, unspecified; F32.A Depression, unspecified; Z86.16 Personal history of COVID-19; Z79.82 Long term (current) use of aspirin; Z87.891 Personal history of nicotine dependence; Z3A.40 40 weeks gestation of pregnancy; O70.0 First degree perineal laceration during delivery; Z79.899 Other long term (current) drug therapy; O99.214 Obesity complicating childbirth
CPT/HCPCS: 59025; 59050; 85025; 86850; 86900; 86901; 87426; 99218; 99406; J7120; G0378; J2405

== ENCOUNTER → 2022-01-03 | Outpatient (CLI) | payer OTHER, SELFPAY ==
[2022-01-03 15:26] LABS: HIV - WCH Non-Reactive (Nonreactive); Syphilis Antibodies Non-reactive
[2022-01-05 22:07] LABS: Chlamydia By Nucleic Acid AMP Negative (Negative); Gonococcus By Nucleic Acid AMP Negative (Negative)
[2022-01-07 14:58] LABS: HSV 1 IgG < 0.91 index (0.00-0.90)
== END | disposition home or self-care (01) ==
LOC: PAVLAB 14:13
PROVIDERS: PCP Nurse Practitioner Family; Referring Provider Nurse Practitioner Women's Health; Visit Provider Nurse Practitioner Women's Health
DX: Z20.2 Contact with and (suspected) exposure to infections with a predominantly sexual mode of transmission (principal)
CPT/HCPCS: 36415; 86695; 86696; 86703; 86780; 87070; 87205; 87255; 87491; 87591

== ENCOUNTER 2022-03-15 08:43 | Emergency (ER) | payer OTHER, SELFPAY ==
[2022-03-15 08:44] VITALS: BP 134/63; PULSE 108; RESP 19; TEMP 37.3; O2SAT 100; BMI 33.2
--- NOTE | 2022-03-15 09:17 | EDS_ITS ---
HPI HPI - GI History of Present Illness Chief Complaint: Abd Pain Detail of Chief Complaint: Abdominal pain Informant: patient Narrative Narrative: Patient presents the emergency department complaint of abdominal pain that started yesterday. Patient was seen at [facility] this morning and evaluated. Patient was discussed with patient's FOAM CUTTING SUPERVISOR and referred to [facility] emergency department for evaluation for concern of IUD with perforation of the anterior uterus. Patient also was noted to have an elevated white blood cell count. Patient was started on antibiotic therapy. Patient was given morphine for pain. Currently she rates her pain a 5 out of 10. Patient states she had a her IUD placed about 8 months ago. She has had low-grade fever at home up to 100.0. She denies dysuria. She has had prior surgical history of partial thyroidectomy but no abdominal surgeries. PFSH PFSH Medical History Abnormal Pap smear of cervix COVID Depression Superficial varicosities Thyroid nodule Vacuum-assisted vaginal delivery Home Medications bupropion HCl 300 mg 24 hr tablet, extended release (Wellbutrin XL) 300 mg PO QAM 01/03/22 [History Last Taken Unknown] buspirone 10 mg tablet 10 mg PO BID 01/03/22 [History Last Taken Unknown] doxycycline hyclate 100 mg tablet 100 mg PO BID 7 days #14 tabs 03/15/22 [Rx Last Taken Unknown] fluconazole 150 mg tablet (Diflucan) 150 mg PO DAILY #1 TAB 03/15/22 [Rx Last Taken Unknown] metronidazole 500 mg tablet 500 mg PO BID 7 days #14 tabs 03/15/22 [Rx Last Taken Unknown] oxycodone-acetaminophen 5 mg-325 mg tablet (Percocet) 1 tab PO Q6H PRN pain 3 days #12 tabs 03/15/22 [Rx Last Taken Unknown] Allergy/AdvReac Type Severity Reaction Status Date / Time No Known Allergies Allergy Verified 03/15/22 08:44 Family History Grandfather Heart disease CVA (cerebral vascular accident) Mother Thyroid disorder Grandmother Colon cancer Surgical History H/O dilation and curettage H/O thyroidectomy Social History Smoking Status: Current every day smoker tobacco type: cigarettes second hand exposure: Yes alcohol intake: never substance use type: does not use caffeine: Yes what type of physical activity do you participate in: none seatbelt use: always do you feel safe at home: Yes additional social history: james ROS ROS ED Review of Systems ROS Unobtainable: other Constitutional Constitutional ED: Reports lethargy; Denies chills, fever(s), sweats or weight loss Eyes Eyes: Denies blurry vision, change in vision or diplopia ENT ENT ED: Denies rhinorrhea or sore throat Cardiovascular Cardiovascular: Denies chest pain, orthopnea or racing heartbeat Respiratory/Chest Respiratory/Chest: Denies cough, dyspnea, dyspnea on exertion, orthopnea or sputum Gastrointestinal Gastrointestinal: Reports abdominal pain; Denies diarrhea, nausea or vomiting Genitourinary Genitourinary ED: Denies dysuria, hematuria or urinary frequency Musculoskeletal Musculoskeletal: Denies arthralgias, back pain, myalgias or neck pain Integumentary Denies abscess, Abrasions or rash Neurologic Neurologic: Denies headache(s) or weakness Psychiatric Psychiatric: Denies anxiety, depression or suicidal thoughts Endocrine Endocrinology: Denies polydipsia, polyphagia or polyuria Hematologic/Lymphatic Hematologic/Lymphatic: Denies easy bleeding, easy bruising or lymphadenopathy Allergic/Immunologic Allergic/Immunologic ED: Denies mouth swelling, tongue swelling or urticaria EXAM Physical Exam Const Vital Signs: 03/15/22 08:44 Temperature 99.2 F H Temperature Source Temporal Pulse Rate 108 H Respiratory Rate 19 H Blood Pressure 134/63 H Blood Pressure Mean 86 Pulse Ox 100 Oxygen Delivery Method Room Air Positive well nourished and well developed General Appearance ED: well developed and NAD HEENT Reports TM's clear and moist mucous membranes normocephalic and atraumatic; Negative for trauma or tenderness Tympanic Membrane ED: Yes TM's clear Eyes PERRL and EOMs intact bilaterally General Eye ED: Negative for pale conjunctiva or scleral icterus Neck no lymphadenopathy, supple and no JVD General: Negative for tenderness Chest Wall inspection of chest normal and palpation of chest normal Chest: Negative for tenderness Resp normal respiratory effort and clear to auscultation bilaterally Effort and Inspection: Negative for respiratory distress or pain with movement Auscultation: Negative for rhonchi, wheezes or diminished lung sounds Cardio regular rate, regular rhythm, S1 normal heart sound, S2 normal heart sound and no murmurs Peripheral Pulses: pulses 2+ throughout GI normal to inspection, nondistended, normoactive bowel sounds, soft to palpation, non-distended and no masses GI Narrative: Tenderness palpation over the suprapubic region as well as the left lower quadrant and right lower quadrant with some guarding. There is no rebound, rigidity, or. Signs. No masses palpated. Back/Spine no CVA tenderness and no thoracic nor lumbar tenderness Extremity normal to inspection General Extremety ED: Negative for edema General Extremity: Negative for edema Neuro oriented x3, CN's II-XII intact bilaterally, no sensory deficits noted and gait normal Sensorium / Orientation: awake, alert, oriented to person, oriented to place and oriented to time Motor Exam: strength 5/5 throughout and strength abnormal Psych mental status grossly normal Skin no rashes or lesions noted and no wounds MDM MDM MDM Narrative Medical decision making narrative: Patient case discussed with Dr. Martinez. Patient was seen in the emergency department by Dr. Martinez and had her IUD removed. All prescriptions for antibiotics and otherwise were written for the patient by Dr. Martinez. Discharge instructios and follow-up instructions given to the patient by Dr. Martinez. Lab Data Attestation: I reviewed the patient's lab results. Discharge Plan Triage Chief Complaint: Abd Pain ED Provider: Xavier Estrada Dx/Rx/DC Orders Clinical Impression: Abdominal pain, Encounter for IUD removal Instructions: Abdominal Pain, IUD Prescriptions: New oxycodone-acetaminophen [Percocet] 5-325 mg tablet 1 tab PO Q6H PRN (Reason: pain) 3 Days Qty: 12 0RF doxycycline hyclate 100 mg tablet 100 mg PO BID 7 Days Qty: 14 0RF metronidazole 500 mg tablet 500 mg PO BID 7 Days Qty: 14 0RF fluconazole [Diflucan] 150 mg tablet 150 mg PO DAILY Qty: 1 0RF No Action bupropion HCl [Wellbutrin XL] 300 mg tablet extended release 24 hr 300 mg PO QAM buspirone 10 mg tablet 10 mg PO BID Primary Care Provider: Xenia Brambila NP Referrals: Xenia Brambila NP, BARYTES GRINDER-C [Primary Care Provider] - Activity Restrictions/Additional Instructions: Follow-up with your FOAM CUTTING SUPERVISOR as instructed. Return if worsening pain, fever, vomiting, or condition should worsen anyway. Disposition Disposition: Home, Self Care
--- NOTE | 2022-03-15 09:30 | NURSING ---
843 SENT TO PHONE. , HAD TO LEAVE MESSAGE
--- NOTE | 2022-03-15 09:31 | NURSING ---
CALLED BACK LINE TO OFFICE, NO ANSWER CALLED [facility], NOT THERE
--- NOTE | 2022-03-15 09:37 | NURSING ---
CONTROL ROOM OPERATOR SENT CALL TO [facility]. SHE WILL GET DR ROCHA.
--- NOTE | 2022-03-15 10:13 | EX.PCM.CONOB ---
Assessment & Plan (1) PID (acute pelvic inflammatory disease): PLAN: IUD successfully removed due to malposition on CT at [facility] along with pelvic pain. treatment for PIH outpatient now with doxy + flagyl condoms x 3 months cultures collected rto in 3 months for rpt cultures and to discuss control. patient declines at this time. (2) Genital herpes: HPI Consult Data Date of Consult: 03/15/22 HPI Narrative HPI Narrative: KAI MOREIRA, is a 32 y/o who presents to [facility] as a transfer from [facility] due to malpositioned IUD and symptoms of PID. She has a new sexual partner. She states her pain in her pelvis to be a 7/10, no vomiting and low grade fever present. She has an elevated white count of 18. [facility] Medical History Abnormal Pap smear of cervix COVID Depression Superficial varicosities Thyroid nodule Vacuum-assisted vaginal delivery Home Medications bupropion HCl 300 mg 24 hr tablet, extended release (Wellbutrin XL) 300 mg PO QAM 01/03/22 [History Last Taken Unknown] buspirone 10 mg tablet 10 mg PO BID 01/03/22 [History Last Taken Unknown] doxycycline hyclate 100 mg tablet 100 mg PO BID 7 days #14 tabs 03/15/22 [Rx Last Taken Unknown] fluconazole 150 mg tablet (Diflucan) 150 mg PO DAILY #1 TAB 03/15/22 [Rx Last Taken Unknown] metronidazole 500 mg tablet 500 mg PO BID 7 days #14 tabs 03/15/22 [Rx Last Taken Unknown] oxycodone-acetaminophen 5 mg-325 mg tablet (Percocet) 1 tab PO Q6H PRN pain 3 days #12 tabs 03/15/22 [Rx Last Taken Unknown] Allergy/AdvReac Type Severity Reaction Status Date / Time No Known Allergies Allergy Verified 03/15/22 08:44 Family History Grandfather Heart disease CVA (cerebral vascular accident) Mother Thyroid disorder Grandmother Colon cancer Surgical History H/O dilation and curettage H/O thyroidectomy Social History Smoking Status: Current every day smoker tobacco type: cigarettes second hand exposure: Yes alcohol intake: never substance use type: does not use caffeine: Yes what type of physical activity do you participate in: none seatbelt use: always do you feel safe at home: Yes additional social history: james Vital Signs Vital Signs Vital Signs: 03/15/22 08:44 Temperature 99.2 F H Temperature Source Temporal Pulse Rate 108 H Respiratory Rate 19 H Blood Pressure 134/63 H Blood Pressure Mean 86 Pulse Ox 100 Oxygen Delivery Method Room Air Weight Weight: 218 lb 7.649 oz Body Mass Index (BMI) 33.2 ROS Constitutional Constitutional: Denies chills, fatigue, fever(s), poor appetite or weakness Eyes Eyes: Denies blurry vision, change in vision, seeing flashes or spots in vision ENT HEENT: Denies dizziness, headache(s), loss taste/smell or sore throat Cardiovascular Cardiovascular: Denies chest pain, dizziness, dyspnea, irregular heart rhythm, palpitations or rapid heart rate Respiratory/Chest Respiratory/Chest: Denies chest tightness, cough, dyspnea or breast pain Gastrointestinal Gastrointestinal: Denies abdominal pain, constipation or vomiting Genitourinary Genitourinary: Denies dysuria or flank pain Musculoskeletal Musculoskeletal: Denies difficulty walking, joint pain, limited range of motion or numbness Neurologic Neurologic: Denies abnormal movements, abnormal speech, dizziness, numbness, seizure-like activity or syncope Psychiatric Psychiatric: Denies anxiety, behavioral changes, change in appetite, confusion, depression or suicidal thoughts Physical Exam Const alert, oriented x3 and no apparent distress General Appearance: cooperative and comfortable Resp normal respiratory effort Cardio regular rate GI Palpation: soft external exam normal Narrative: IUD strings visible and pulled gently with ringed forceps device. there is a thin pham purulent discharge consistent with PID Back/Spine no CVA tenderness and thoraco-lumbar ROM normal Extremity normal to inspection, no clubbing, cyanosis or edema, no calf tenderness and no pedal edema Psych mental status grossly normal, thought process normal, cooperative, affect normal, speech normal, activity/motor behavior normal, denies homicidal ideation and denies suicidal ideation Charges/Coding Multi Select Codes Visit Charges Office Visit/Consults: 66948 ED Visit; Moderate Severity
[2022-03-15] MEDS: oxyCODONE 5 MG Tablet 10 MG PO (11:05)
[2022-03-15 12:21] VITALS: RESP 16
[2022-03-15 13:58] LABS: Chlamydia Trachomatis by PCR Negative (Negative); Neisserai gonorrhoeae by PCR Positive (Negative); Probe Check PASS
== END 2022-03-15 12:10 | disposition home or self-care (01) ==
PROVIDERS: Obstetrics & Gynecology; Emergency Provider Emergency Medicine; PCP Nurse Practitioner Family; Visit Provider Emergency Medicine
DX: R10.9 Unspecified abdominal pain (principal); Z30.432 Encounter for removal of intrauterine contraceptive device; F32.A Depression, unspecified; F17.210 Nicotine dependence, cigarettes, uncomplicated; Z86.16 Personal history of COVID-19; Z79.899 Other long term (current) drug therapy
CPT/HCPCS: 87070; 87075; 87077; 87205; 87491; 87591; 99284

== ENCOUNTER → 2022-06-08 | Outpatient (CLI) | payer OTHER, SELFPAY ==
[2022-06-12 16:24] LABS: Gonococcus By Nucleic Acid AMP Negative (Negative)
[2022-06-12 16:25] LABS: Chlamydia By Nucleic Acid AMP Positive (Negative)
== END | disposition home or self-care (01) ==
LOC: LABSPEC 16:37
PROVIDERS: PCP Nurse Practitioner Family; Visit Provider Obstetrics & Gynecology
DX: Z20.2 Contact with and (suspected) exposure to infections with a predominantly sexual mode of transmission (principal)
CPT/HCPCS: 87491; 87591

== ENCOUNTER → 2022-08-11 | Outpatient (CLI) | payer OTHER, SELFPAY ==
[2022-08-14 15:08] LABS: Chlamydia By Nucleic Acid AMP Negative (Negative); Gonococcus By Nucleic Acid AMP Negative (Negative)
== END | disposition home or self-care (01) ==
PROVIDERS: PCP Nurse Practitioner Family; Visit Provider Registered Nurse
DX: Z11.3 Encounter for screening for infections with a predominantly sexual mode of transmission (principal)
CPT/HCPCS: 87070; 87205; 87491; 87591

== ENCOUNTER → 2022-12-01 | Outpatient (CLI) | payer OTHER, SELFPAY ==
[2022-12-01 11:05] LABS: Ionized Calcium 5.03 mg/dL (4.36-5.20)
[2022-12-01 11:13] LABS: ALB/GLOB Ratio 1.1 RATIO (0.9-2.4); AST(SGOT) 11 U/L (15-37); Alanine Aminotransfer ALT/SGPT 19 U/L (13-56); Albumin, Serum 3.8 g/dL (3.2-5.0); Alkaline Phosphatase 66 U/L (45-117); Anion Gap 3 (5-15); BUN 14 mg/dL (7-18); BUN/Creat Ratio 18.5 RATIO (10-20); Calcium,Total 8.7 mg/dL (8.5-10.1); Chloride 107 mmol/L (98-107); Cholesterol 160 mg/dL (200); Creatinine, Serum 0.76 mg/dL (0.55-1.02); EST Glomerular Filtration Rate 94 mL/min (>60); Est Glom Filt Rate - Afr Amer 113 mL/min (>60); Globulin 3.6 g/dL (2.2-4.2); Glucose 83 mg/dL (74-106); High Density Lipoprotein 56 mg/dL; Potassium 4.4 mmol/L (3.5-5.1); Protein, Total 7.4 g/dL (6.4-8.2); Sodium Level 136 mmol/L (136-145); T4 Free Direct 0.88 ng/dL (0.76-1.46); Thyroid Stim Hormone (TSH) 1.95 uIU/mL (0.358-3.74); Triglycerides 47 mg/dL; Very Low Density Lipoprotein 9 mg/dL (5-40)
[2022-12-01 17:21] LABS: Ionized Calcium Order ORDER TUBE
== END | disposition home or self-care (01) ==
LOC: LAB.FUTURE 09:14 → LAB 09:18
PROVIDERS: PCP Nurse Practitioner Family; Referring Provider Nurse Practitioner Family; Visit Provider Nurse Practitioner Family
DX: Z13.1 Encounter for screening for diabetes mellitus (principal); E89.0 Postprocedural hypothyroidism; Z13.6 Encounter for screening for cardiovascular disorders
CPT/HCPCS: 36415; 80053; 80061; 82330; 84439; 84443

== ENCOUNTER → 2024-02-05 | Outpatient (CLI) | payer OTHER, SELFPAY ==
[2024-02-07 22:07] LABS: Chlamydia By Nucleic Acid AMP Negative (Negative); Gonococcus By Nucleic Acid AMP Negative (Negative)
== END | disposition home or self-care (01) ==
LOC: LABSPEC 16:55
PROVIDERS: PCP Nurse Practitioner Family; Referring Provider Nurse Practitioner Family; Visit Provider Nurse Practitioner Family
DX: N89.8 Other specified noninflammatory disorders of vagina (principal); Z20.2 Contact with and (suspected) exposure to infections with a predominantly sexual mode of transmission
CPT/HCPCS: 87070; 87205; 87491; 87591

== ENCOUNTER → 2024-02-27 | Outpatient (CLI) | payer OTHER, SELFPAY ==
[2024-02-27 16:23] LABS: Ionized Calcium 1.21 mmol/L (1.09-1.30)
[2024-02-27 16:28] LABS: Anion Gap 5 (5-15); BUN 13 mg/dL (7-18); BUN/Creat Ratio 16.5 RATIO (10-20); Calcium,Total 9.5 mg/dL (8.5-10.1); Chloride 107 mmol/L (98-107); Creatinine, Serum 0.79 mg/dL (0.55-1.02); EST Glomerular Filtration Rate 89 mL/min (>60); Est Glom Filt Rate - Afr Amer 108 mL/min (>60); Glucose 115 mg/dL (74-106); Potassium 3.5 mmol/L (3.5-5.1); Sodium Level 136 mmol/L (136-145)
[2024-02-27 16:30] LABS: Ionized Calcium Order ORDER TUBE
== END | disposition home or self-care (01) ==
LOC: LAB 15:27
PROVIDERS: PCP Nurse Practitioner Family; Referring Provider Nurse Practitioner Family; Visit Provider Nurse Practitioner Family
DX: E89.0 Postprocedural hypothyroidism (principal)
CPT/HCPCS: 36415; 80048; 82330; 84443